=== PATIENT | male | born 1950 | race Caucasian/White ===

== ENCOUNTER → 2016-05-11 | Outpatient (CLI) | payer OTHER ==
[~2016-05-11] MED LIST: ALFU10TA30 PO; ASCO10003 PO; ASPI81TA28 PO; CIPR-255 PO; CLC100 PO; DTR5 PO; IBUP-103 PO; LEVO125T4 PO; OXYC7.5T62 PO; SIMV20TA2 PO; VITACAP26 PO
[2016-05-11 11:17] LABS: ESTIMATED AVERAGE GLUCOSE 111 mg/dl; HA1C FLAG Normal (Normal)
== END | disposition home or self-care (01) ==
LOC: C.LABBC 07:54
PROVIDERS: ATTEND Internal Medicine
DX: E78.5 Hyperlipidemia, unspecified (principal); R73.09 Other abnormal glucose

== ENCOUNTER 2016-05-31 10:33 | Inpatient (IN) | payer OTHER ==
[2016-05-14 11:19] VITALS: BMI 27.0
--- NOTE | 2016-05-14 11:57 | PAT Medication Instructions ---
Service Date May 14, 2016. Current Home Medication List Ascorbic Acid (Vitamin C), 1,000 MG PO QAM Aspirin (Aspirin Ec), 81 MG PO QAM Ibuprofen Tab (Advil), 400-600 MG PO prn Levothyroxine Sodium (Levothyroxine Sodium), 1 TAB PO QAM Simvastatin (Zocor), 20 MG PO QPM Medication Instructions For Your Scheduled Surgery - Check with surgeon for instructions: Aspirin (Aspirin Ec), 81 MG PO QAM Ibuprofen Tab (Advil), 400-600 MG PO prn - Hold the following medications the morning of surgery: Ascorbic Acid (Vitamin C), 1,000 MG PO QAM - Take the following medications the morning of surgery with a sip of water: Levothyroxine Sodium (Levothyroxine Sodium), 1 TAB PO QAM - Take the following medications as scheduled the night before surgery: Simvastatin (Zocor), 20 MG PO QPM If you have any questions please call us at [phone] (Sydnie Hodges PA-C) or [phone] or [phone]
[2016-05-14 12:21] LABS: BASO % 0.4 %; BASO ABS # 0.02 K/uL (0-0.2); COMPLETE YES; EOS % 5.5 %; HEMATOCRIT 44.8 % (42-52); LYMPH % 26.2 %; LYMPH ABS # 1.29 K/uL (1.2-3.4); MEAN CELL VOLUME 88.9 fL (80-100); MEAN CORPUSCULAR HEMOGLOBIN 31.5 pg (25-34); MEAN CORPUSCULAR HGB CONC 35.5 g/dl (32-36); MEAN PLATELET VOLUME 10.1 fL (7.4-10.4); MONO % 8.5 %; NEUT % 59.4 %; PLATELET COUNT 156 K/uL (130-400); RED BLOOD COUNT 5.04 M/uL (4.7-6.1); WHITE BLOOD COUNT 4.93 K/uL (4.8-10.8)
[2016-05-14 12:23] LABS: URINE APPEARANCE CLEAR (CLEAR); URINE BILIRUBIN NEG (NEG); URINE COLOR YELLOW; URINE NITRITE NEG (NEG); URINE PH 6.5 (4.5-7.5); URINE SPECIFIC GRAVITY 1.004 (1.000-1.030); UROBILINOGEN NEG (NEG)
[2016-05-14 12:25] LABS: MANUAL MICROSCOPIC REQUIRED? NO; REVIEW REQ? NO
[2016-05-14 12:58] LABS: BUN/CREATININE RATIO 16.1 (10-20); CALCIUM 8.8 mg/dl (8.5-10.1); CREATININE 1.2 mg/dl (0.60-1.40); POTASSIUM 4.3 mmol/L (3.5-5.1)
[~2016-05-31] VITALS: Ht 177.8 cm; Wt 82.0 kg
[2016-05-31] VITALS (7 sets, daily range): BP systolic 134–157; BP diastolic 61–85; PULSE 53–68; TEMP 36.4–36.9; O2SAT 91–99; Ht 177.8 cm; Wt 82.0 kg
[~2016-05-31 10:33] MED LIST changes: -ALFU10TA30 PO; +CEFAZOLIN 1000MG/55 ML D5W IV SCH; +CEFAZOLIN 2000 MG/60 ML D5W IV SCH; -CIPR-255 PO; -CLC100 PO; +DEXAMETHASONE SOD INJ 4 MG/ML VIAL ONE; -DTR5 PO; +FENTANYL CITRATE INJ 50 MCG/1 ML 2 ML VIAL ONE; +HEPARIN SOD 5000 UNIT/0.5 ML CARP SQ SCH; +LACTATED RINGER'S 1000ML 1,000 ML IV SCH; +LIDOCAINE HCL 2% 2 ML VIAL (20MG/ML) ONE; +METOCLOPRAMIDE HCL INJ 5 MG/ML 2 ML VIAL ONE; +MIDAZOLAM HCL 1 MG/ML 2ML VIAL ONE; +ONDANSETRON INJ 2 MG/ML 2 ML VIAL ONE; -OXYC7.5T62 PO; +PROPOFOL IV EMULSION 10 MG/ML 20 ML VIAL IV ONE; +RANITIDINE HCL 25 MG/ML INJ ONE; +ROCURONIUM BROMIDE 10 MG/ML 5 ML VIAL ONE; +SUCCINYLCHOLINE CHLORIDE 20 MG/ML 10 ML VIAL IV ONE; -VITACAP26 PO
[2016-05-31] MEDS ORDERED: ROCURONIUM BROMIDE 10 MG/ML 5 ML VIAL ONE ×2 (10:49→15:12)
--- NOTE | 2016-05-31 12:01 | History & Physical Bridge Note ---
H&P Re-Evaluation Bridge Note: I have examined the patient, reviewed the History & Physical and in the interval since the performance of the History & Physical I have noted the following changes of clinical significance: No changes noted
[2016-05-31] MEDS ORDERED: BUPIVACAINE 0.5 % 5 MG/1 ML MPF 30ML VIAL ONE (12:38)
[2016-05-31] MEDS ORDERED: LACTATED RINGER'S 1000ML 1,000 ML IV PRN (12:41)
[2016-05-31] MEDS ORDERED: MoRPHine SULFATE 2 MG/ML CARP ONE ×2 (12:45→12:46)
[2016-05-31] MEDS ORDERED: ONDANSETRON INJ 2 MG/ML 2 ML VIAL IV PRN ×2 (12:45→16:15)
[2016-05-31] MEDS ORDERED: METHYLENE BLUE 0.5% 10 ML VIAL ONE (14:48)
[2016-05-31] MEDS ORDERED: OXYCODONE/ACETAMINOPHEN 7.5-325 TAB PO PRN (16:15)
[2016-05-31] MEDS ORDERED: HYDROmorphone INJ 1 MG/ML SYR IV PRN (16:15)
[2016-05-31] MEDS ORDERED: KETOROLAC TROMETHAMINE 15 MG/ML VIAL IV PRN (16:15)
[2016-05-31] MEDS ORDERED: OXYBUTYNIN CHLORIDE 5 MG TAB PO PRN (16:15)
[2016-05-31] MEDS ORDERED: GLYCOPYRROLATE INJ 0.2 MG/ML VIAL ONE (16:16)
[2016-05-31] MEDS ORDERED: NEOSTIGMINE METHYLSULFATE 5 MG/5 ML SYR ONE (16:16)
[2016-05-31] MEDS: FENTANYL CITRATE INJ 50 MCG/1 ML 2 ML VIAL IV PRN ×4 (16:20→16:35)
--- NOTE | 2016-05-31 16:29 | [facility] Post Operative Brief Note ---
Immediate Operative Summary Operative Date May 31, 2016. Pre-Operative Diagnosis cT1c [place] 3+3 Prostate cancer Post-Operative Diagnosis Same as pre-operative Procedure(s) Performed Robotic assisted laparoscopic radical retropubic prostatectomy Surgeon Dr. Fransisco Noel MD Fishery Biologist Surgeon(s) Jamila Alaniz, RN, COFFEE FARMER Estimated Blood Loss 50 ML Findings Watertight anastomosis. Specimens A. Prostate and seminal vessicles B. Periprostatic fat Drains 18 fr renner, #10 THAO drain Anesthesia GAET + local Complication(s) None Disposition Recovery Room / PACU
[2016-05-31 16:33] LABS: HEMATOCRIT 45.6 % (42-52); MEAN CELL VOLUME 90.5 fL (80-100); MEAN CORPUSCULAR HEMOGLOBIN 32.7 pg (25-34); MEAN PLATELET VOLUME 10.3 fL (7.4-10.4); PLATELET COUNT 155 K/uL (130-400); RED BLOOD COUNT 5.04 M/uL (4.7-6.1); WHITE BLOOD COUNT 10.16 K/uL (4.8-10.8)
[2016-05-31] MEDS: HYDROmorphone INJ 1 MG/ML SYR IV PRN ×2 (16:40→16:45)
[2016-05-31 16:45] LABS: MEAN CORPUSCULAR HGB CONC 36.2 g/dl (32-36)
[2016-05-31 16:58] LABS: BUN/CREATININE RATIO 15.4 (10-20); CALCIUM 8.5 mg/dl (8.5-10.1); CREATININE 1.5 mg/dl (0.60-1.40); POTASSIUM 3.8 mmol/L (3.5-5.1)
--- NOTE | 2016-05-31 17:12 | OPERATIVE REPORT ---
DATE OF OPERATION: 05/31/2016 PREOPERATIVE DIAGNOSIS: [place] 3+3 adenocarcinoma of the prostate. POSTOPERATIVE DIAGNOSIS: Same. PROCEDURE: Robot-assisted laparoscopic radical retropubic prostatectomy. SURGEON: Dr. Fransisco Noel. RN MEDICARE: MEHUL Carreno. ANESTHESIA: General anesthesia with endotracheal intubation plus local at port sites. ESTIMATED BLOOD LOSS: 50 mL. IV FLUIDS: 1500 mL of crystalloid. SPECIMENS SENT TO PATHOLOGY: Periprostatic fat, prostate plus seminal vesicles. DRAINS LEFT IN PLACE: Include a #10 THAO drain in the left lower quadrant and an 18-Austrian silicone Maher catheter to gravity drainage with 10 mL of sterile water balloon. FINDINGS: Watertight anastomosis, median lobe, periprostatic inflammation at the level of the apex, excellent hemostasis. COMPLICATIONS: None. BRIEF HISTORY: Mr. Garsia is a pleasant 65-year-old male who I have seen as an outpatient for history of an elevated and rising PSA. He has undergone a prostate biopsy which demonstrated relatively large volumes of [place] 3+3 adenocarcinoma. Please see H\T\P for further details. After discussion of risks and benefits of various forms of management, the patient has decided upon a robot-assisted laparoscopic radical retropubic prostatectomy to manage his disease. Intravenous cephalosporins were provided for antibiotic coverage and heparin and SCDs used for DVT prophylaxis. Informed consent reviewed prior to the operating room today. PROCEDURE: The patient was properly identified and brought to the operative suite after identification of the chart, general anesthesia with endotracheal intubation was initiated. The patient was prepped and draped in standard fashion for this procedure. artist and repertoire manager-out procedure was followed. A 12 mm supraumbilical incision was made and abdomen was entered under direct visualization using a 0 degree lens and a visual obturator. Abdomen was insufflated to 15 mmHg and the patient was noted to be free of any injuries on access to the abdomen. Normal intra-abdominal anatomy was appreciated. Ports were placed for a 4th arm robotic template including 2 left-sided 7 mm robotic ports, 1 right-sided 7 mm port, a 5 and 12 mm therapist's assistant port. A relatively copious amount of intra-abdominal fat was noted and some of it was resected to allow for passage of the scope without cellulite. Bladder was dropped down to the level of the pubic bone and prostate was defatted. This fat was sent as periprostatic fat for pathologic analysis. Endopelvic fascia was sharply entered on both sides and dorsal venous complex which was noted to be rather thick was skeletonized. This was then controlled using a [id number] 0 Vicryl suture on a CT1 needle. The neurovascular bundles were defined on both sides, although seem to be relatively large volume of [place] 3+3. Negligible risk of extracapsular extension was appreciated. A 30 degree down lens was used to place the bladder neck on traction and divided the bladder neck down to the level of the Maher catheter. The Maher was pulled within the fourth arm and used for anterior traction on the prostate gland. The median lobe within the confines of the prostate was appreciated and the mucosa was incised over the median lobe. Bladder was dropped and median lobe was dissected free. No evidence of injury to the ureteral orifices, which were noted to be well removed from the area of dissection at the bladder neck was appreciated. Posterior bladder neck was divided and the bladder was dropped in the midline down to the level of the vasa and seminal vesicles in the midline posterior to the prostate. The vas deferens were circumscribed and divided and seminal vesicles were dissected free. Vessels were controlled using monopolar and bipolar cautery as necessary. Cold scissors were used to drop the rectum up to the level of the apex of the prostate. The prostatic pedicles were defined on both sides and controlled using cold Weck clips. At the level of the neurovascular bundles, a small rim of tissue was left over the prostate gland for a risk of extracapsular extension. Dissection was carried out to the level of the apex where continuing the recording due to a risk of extracapsular extension, a small rim of neurovascular tissue was left on the prostate gland on either side. The apex of the prostate was reached and attention was turned to the dorsal vein which was divided using hot scissors. Urethra was skeletonized and then divided. Rectourethralis fibers were divided with excellent hemostasis and prostate was removed from the pelvis where it was placed into the abdomen. It was placed within an EndoCatch bag for retrieval at the end of the case. Excellent hemostasis in prostatic bed was appreciated. Pelvis was filled with saline and rectum was insufflated under saline irrigation with no evidence of injury to the rectum. Urethrovesical anastomosis was completed using a double armed V-Loc suture in a circumferential running fashion. Maher was visualized entering the bladder prior to completion of the closure. This was tested with greater than 120 mL of sterile irrigant and noted to be watertight. Ten mL of sterile water were placed within the balloon which was placed to gravity drainage. A THAO drain was brought in via the fourth arm port which was placed within the confines of the pelvis while avoiding placing it directly over the anastomosis. Robotic instruments were removed. Camera was brought in via the therapist's assistant port and string to the EndoCatch bag was retrieved through the supraumbilical incision. Ports were removed and the supraumbilical incision was enlarged sufficiently to allow for easy passage of the specimen bag. Supraumbilical incision was closed using 0 Vicryl suture on a UR-5 and UR-6 needle after removal of excess carbon dioxide gas from the abdomen. 2-0 silk was used to secure the drain in place and 4-0 Monocryl and Dermabond was used to close the skin incisions at the laparoscopic port sites. The catheter was placed to gravity drainage. THAO drain was placed to bulb suction. Anesthesia was reversed. The patient was transferred to recovery room in stable condition. FOLLOWUP CARE: The patient will be admitted to the floor for standard postoperative management. I attest to the content of the Intraoperative Record and any orders documented therein. Any exceptio ns are noted below.
--- NOTE | 2016-05-31 17:35 | Anesthesiology Progress Note ---
Anesthesia Post Op Note Date & Time May 31, 2016 at 17:34 Vital Signs Pain Intensity: 7 Vital Signs Past 12 Hours Date Time Temp Pulse Resp B/P Pulse Ox O2 Delivery O2 Flow Rate FiO2 05/31/16 17:10 58 16 127/56 100 Nasal Cannula 2 05/31/16 17:00 36.4 44 12 138/52 100 Nasal Cannula 2 05/31/16 16:50 61 17 125/41 99 Nasal Cannula 2 05/31/16 16:40 58 16 157/63 100 Nasal Cannula 2 05/31/16 16:30 57 16 158/77 100 Mask 10 05/31/16 16:20 59 17 162/63 100 Mask 10 05/31/16 16:12 37.1 67 19 147/69 100 Mask 10 05/31/16 10:55 36.4 53 18 153/85 99 Room Air Notes Mental Status: alert / awake / arousable, participated in evaluation Pt Amnestic to Procedure: Yes Nausea / Vomiting: adequately controlled Pain: adequately controlled Airway Patency, RR, SpO2: stable & adequate BP & HR: stable & adequate Hydration State: stable & adequate Anesthetic Complications: no major complications apparent
[2016-05-31 19:19] LABS: INR 1.1 (0.9-1.1); PROTHROMBIN TIME (PATIENT) 11.4 SECONDS (9.0-12.0)
[2016-05-31] MEDS: LACTATED RINGER'S 1000ML 1,000 ML IV SCH (19:26)
[2016-05-31] MEDS: CEFAZOLIN IV 2,000 MG in DEXTROSE 5% 50ML 50 ML IV SCH (19:26)
[2016-05-31] MEDS: ACETAMINOPHEN 500 MG TAB PO SCH (19:27)
[2016-05-31] MEDS ORDERED: SIMVASTATIN 20 MG TAB PO SCH (21:00)
[2016-05-31] MEDS: DOCUSATE SODIUM 100 MG CAP PO SCH (22:01)
[2016-05-31] MEDS: HEPARIN SOD 5000 UNIT/0.5 ML CARP SQ SCH (22:07)
[2016-06-01] MEDS: ACETAMINOPHEN 500 MG TAB PO SCH ×2 (01:45→08:40)
[2016-06-01 03:05] VITALS: BP 138/67; PULSE 52; TEMP 36.8; O2SAT 92
[2016-06-01] MEDS: CEFAZOLIN IV 2,000 MG in DEXTROSE 5% 50ML 50 ML IV SCH ×2 (03:26→12:20)
[2016-06-01] MEDS: LACTATED RINGER'S 1000ML 1,000 ML IV SCH ×2 (03:27→12:42)
[2016-06-01] MEDS ORDERED: LEVOTHYROXINE 125 MCG TAB PO SCH (06:00)
[2016-06-01 07:20] LABS: COMPLETE YES; HEMATOCRIT 41.3 % (42-52); IG% 0.2 %; LYMPH % 7.3 %; LYMPH ABS # 0.78 K/uL (1.2-3.4); MEAN CELL VOLUME 87.5 fL (80-100); MEAN CORPUSCULAR HEMOGLOBIN 30.7 pg (25-34); MEAN CORPUSCULAR HGB CONC 35.1 g/dl (32-36); MEAN PLATELET VOLUME 10.5 fL (7.4-10.4); MONO % 14.5 %; PLATELET COUNT 153 K/uL (130-400); RED BLOOD COUNT 4.72 M/uL (4.7-6.1); WHITE BLOOD COUNT 10.63 K/uL (4.8-10.8)
[2016-06-01 07:49] VITALS: BP 118/62; PULSE 55; TEMP 36.7; O2SAT 94
[2016-06-01 07:54] LABS: BUN/CREATININE RATIO 13.6 (10-20); CALCIUM 8.3 mg/dl (8.5-10.1); CREATININE 1.3 mg/dl (0.60-1.40); POTASSIUM 4.1 mmol/L (3.5-5.1)
[2016-06-01] MEDS ORDERED: PNEUMOCOCCAL POLYSACCHARIDES 25 MCG/0.5 ML VIAL/SYR IM. ONE (08:00)
[2016-06-01] MEDS ORDERED: PNEUMOCOCCAL ADMINISTRATION CHARGE ONE (08:00)
[2016-06-01] MEDS: DOCUSATE SODIUM 100 MG CAP PO SCH (08:40)
--- NOTE | 2016-06-01 08:46 | Progress Note ---
Subjective Date of Service: Jun 01, 2016. Subjective Pt evaluation today including: conversation w/ patient, conversation w/ family , physical exam, chart review Voiding: renner catheter in place 65 year old POD#1 RALP Doing well. Minimal pain Tolerating clears. Ambulating in halls and passing flatus. Renner intact draining clear yellow urine. Abd is actually soft- incisions look great. THAO drain intact with small amount of serosang drainage. IVF infusing. AFVSS, Labs unremarkable. Review of Systems Constitutional: No chills, No fever Eyes: No worsening of vision ENT: No hearing loss Respiratory: No cough, No shortness of breath Cardiac: No chest pain Abdomen: + see HPI, No nausea, No vomiting Male : + see HPI Neurologic: No memory loss Psychiatric: No depression symptoms Heme: No abnormal bleeding/bruising Endo: No fatigue Skin: No rash Objective Vital Signs Date Time Temp Pulse Resp B/P Pulse Ox O2 Delivery O2 Flow Rate FiO2 06/01/16 07:49 36.7 55 15 118/62 94 Room Air 06/01/16 03:05 36.8 52 17 138/67 92 Room Air 05/31/16 23:47 36.9 57 18 134/61 91 Room Air 05/31/16 23:35 Room Air 05/31/16 20:22 36.6 63 16 156/76 97 Room Air 05/31/16 19:20 36.6 61 16 154/74 95 Nasal Cannula 2.0 05/31/16 18:25 36.8 68 16 139/79 96 Nasal Cannula 1.5 05/31/16 17:50 36.6 60 16 157/74 96 Nasal Cannula 2.0 05/31/16 17:20 96 Nasal Cannula 2.0 05/31/16 17:20 96 Nasal Cannula 2.0 05/31/16 17:10 58 16 127/56 100 Nasal Cannula 2 05/31/16 17:00 36.4 44 12 138/52 100 Nasal Cannula 2 05/31/16 16:50 61 17 125/41 99 Nasal Cannula 2 05/31/16 16:40 58 16 157/63 100 Nasal Cannula 2 05/31/16 16:30 57 16 158/77 100 Mask 10 05/31/16 16:20 59 17 162/63 100 Mask 10 05/31/16 16:12 37.1 67 19 147/69 100 Mask 10 05/31/16 10:55 36.4 53 18 153/85 99 Room Air Physical Exam General Appearance: WD/WN, no apparent distress Eyes: normal inspection ENT: hearing grossly normal Neck: no JVD Respiratory/Chest: no respiratory distress, no accessory muscle use Abdomen: soft Extremities: normal range of motion, non-tender, normal inspection, no pedal edema, no calf tenderness Neurologic/Psychiatric: alert, normal mood/affect, oriented x 3 Skin: normal color, warm/dry, no rash Laboratory Results Last 24 Hours Test 05/31/16 16:27 05/31/16 18:46 06/01/16 06:52 White Blood Count 10.16 K/uL 10.63 K/uL Red Blood Count 5.04 M/uL 4.72 M/uL Hemoglobin 16.5 g/dL 14.5 g/dL Hematocrit 45.6 % 41.3 % Mean Corpuscular Volume 90.5 fL 87.5 fL Mean Corpuscular Hemoglobin 32.7 pg 30.7 pg Mean Corpuscular Hemoglobin Concent 36.2 g/dl 35.1 g/dl RDW Standard Deviation 41.6 fL 40.0 fL RDW Coefficient of Variation 12.6 % 12.5 % Platelet Count 155 K/uL 153 K/uL Mean Platelet Volume 10.3 fL 10.5 fL Sodium Level 142 mmol/L 140 mmol/L Potassium Level 3.8 mmol/L 4.1 mmol/L Chloride Level 105 mmol/L 106 mmol/L Carbon Dioxide Level 25 mmol/L 25 mmol/L Anion Gap 12.0 mmol/L 9.0 mmol/L Blood Urea Nitrogen 23 mg/dl 18 mg/dl Creatinine 1.50 mg/dl 1.30 mg/dl Est Creatinine Clear Calc Drug Dose 50.7 ml/min 58.5 ml/min Estimated GFR () 55.8 66.4 Estimated GFR (Non- 48.2 57.3 BUN/Creatinine Ratio 15.4 13.6 Random Glucose 138 mg/dl 147 mg/dl Calcium Level 8.5 mg/dl 8.3 mg/dl Prothrombin Time 11.4 SECONDS Prothromb Time International Ratio 1.1 Activated Partial Thromboplast Time 25.4 SECONDS Partial Thromboplastin Ratio 1.0 Neutrophils (%) (Auto) 78.0 % Lymphocytes (%) (Auto) 7.3 % Monocytes (%) (Auto) 14.5 % Eosinophils (%) (Auto) 0.0 % Basophils (%) (Auto) 0.0 % Neutrophils # (Auto) 8.29 K/uL Lymphocytes # (Auto) 0.78 K/uL Monocytes # (Auto) 1.54 K/uL Eosinophils # (Auto) 0.00 K/uL Basophils # (Auto) 0.00 K/uL Immature Granulocyte % (Auto) 0.2 % Immature Granulocyte # (Auto) 0.02 K/uL Assessment and Plan s/p RALP Pt doing well. Increase diet as tolerated. Ok to discharge home after lunch if tolerating diet and pain. May d/c THAO drain and IVF after lunch if tolerating diet. Encourage ambulation. Renner cath care teaching. rx on chart for Cipro, oxybutynin for bladder spasms, colace and percocet.
[2016-06-01] MEDS ORDERED: CIPR-255 PO (08:49)
[2016-06-01] MEDS ORDERED: CLC100 PO (08:49)
[2016-06-01] MEDS ORDERED: OXYC7.5T62 PO (08:49)
[2016-06-01] MEDS ORDERED: DTR5 PO (08:49)
--- NOTE | 2016-06-01 08:51 | Discharge Instructions ---
Discharge Instructions Admission Reason for Admission: Prostate Cancer Discharge Discharge Diagnosis / Problem: Prostate Cancer Discharge Goals Goal(s): Improve function, Improve disease control, Prevent Disease Progression Activity Recommendations Activity Limitations: per Instructions/Follow-up section . Instructions / Follow-Up Instructions / Follow-Up 1. Do not lift >15lbs x 6 weeks. 2. No heavy exercise x 6 weeks. You may engage in light activity such as walking and stairs as tolerated. 3. No sexual intercourse until cleared by Dr. Noel or Dr. Ward. 4. Do not drive x [address] while taking narcotics. 5. Finish all of the antibiotic you have been prescribed. 6. Immediately call our office at [phone] if your catheter is removed for any reason. 7. Follow-up as scheduled. Please call our office at [phone] if you need to reschedule for any reason. . Current Hospital Diet Hospital Diet(s): Regular Diet Discharge Diet Recommended Diet: Regular Diet Procedures Procedures Performed: Robotic assisted laparoscopic radical retropubic prostatectomy Pending Studies Studies pending at discharge: no Laboratory Results Hemoglobin A1c Test 05/11/16 08:01 Range/Units Estimated Average Glucose 111 mg/dl Hemoglobin A1c 5.5 4.5-5.6 % Lipid Panel Test 05/11/16 08:01 Range/Units Triglycerides Level 99 0-150 mg/dl Cholesterol Level 139 0-200 mg/dl HDL Cholesterol 46 mg/dl Cholesterol/HDL Ratio 3.0 LDL Cholesterol, Calculated 73 mg/dl Medical Emergencies . Who to Call and When: Medical Emergencies: If at any time you feel your situation is an emergency, please call 911 immediately. . Non-Emergent Contact Non-Emergency issues call your: Primary Care Provider, Urologist Call Non-Emergent contact if: temperature is above 101.5 . . "Provider Documentation" section prepared by Mary Sweeney. VTE Core Measure Inpt VTE Proph given/why not?: Unfractionated heparin SQ, SCD's
[2016-06-01] MEDS ORDERED: ASPIRIN 81 MG ECTAB PO SCH (09:00)
[2016-06-01 09:53] VITALS: O2SAT 94
[2016-06-01] MEDS: HEPARIN SOD 5000 UNIT/0.5 ML CARP SQ SCH (12:15)
--- NOTE | 2016-06-01 13:45 | Anesthesiology Progress Note ---
Anesthesia Post Op Note Date & Time Jun 01, 2016 at 13:44 Vital Signs Pain Intensity: 0.0 Vital Signs Past 12 Hours Date Time Temp Pulse Resp B/P Pulse Ox O2 Delivery O2 Flow Rate FiO2 06/01/16 09:53 94 Room Air 06/01/16 07:49 36.7 55 15 118/62 94 Room Air 06/01/16 07:20 Room Air 06/01/16 03:05 36.8 52 17 138/67 92 Room Air Notes Mental Status: alert / awake / arousable, participated in evaluation Pt Amnestic to Procedure: Yes Nausea / Vomiting: adequately controlled Pain: adequately controlled Airway Patency, RR, SpO2: stable & adequate BP & HR: stable & adequate Hydration State: stable & adequate Anesthetic Complications: no major complications apparent
[2016-06-01 13:47] VITALS: BP 118/62; PULSE 55; TEMP 36.7; O2SAT 94
--- NOTE | 2016-06-19 15:48 | DISCHARGE SUMMARY ---
ADMITTING DIAGNOSIS: Prostate cancer. DISCHARGE DIAGNOSIS: Same. PROCEDURES OVER THE COURSE OF ADMISSION: Include a robotic prostatectomy on 05/31/2016. ADMITTING ATTENDING: Dr. Fransisco Noel. COMPLICATIONS: None. PROCEDURE OVER THE COURSE OF HOSPITALIZATION: Include a robotic prostatectomy on 05/31/2016 as planned. BRIEF HISTORY: Mr. Garsia is a pleasant 65-year-old male who has been found to have prostate cancer as an outpatient after prostate biopsy. Please see H\T\P for further details. He has decided upon radical prostatectomy to manage his disease with robot assistance and is being admitted for this purpose. HOSPITAL COURSE: The patient was admitted after uncomplicated robotic prostatectomy as planned on 05/31/2016. Please see operative report for further details. The patient's diet and activity were rapidly advanced over the course of this hospitalization. By postoperative day #1, he was ambulating in the hallways, tolerating a regular diet and overall considered stable for discharge home. Please see progress notes for further details. DISCHARGE INSTRUCTIONS: Please see discharge instructions and medication sheet for details. Outpatient trial of void and postoperative appointment is confirmed. The patient is instructed to contact our service should he note any fevers, chills, nausea, vomiting or other significant difficulties in the postoperative period.
== END 2016-06-01 14:59 | disposition home or self-care (01) | DRG 707 ==
LOC: ENRESERVTM → ENRESERVDT → C.ACU 10:33 → C.MSW 16:09
PROVIDERS: ADMIT Urology; ATTEND Urology
PROC: 0VT34ZZ Resection of Bilateral Seminal Vesicles, Percutaneous Endoscopic Approach (ICD-10-PCS; principal; 2016-05-31 12:30)
PROC: 0VT04ZZ Resection of Prostate, Percutaneous Endoscopic Approach (ICD-10-PCS; principal; 2016-05-31 12:30)
PROC: 8E0W4CZ Robotic Assisted Procedure of Trunk Region, Percutaneous Endoscopic Approach (ICD-10-PCS; principal; 2016-05-31 12:30)
DX: C61 Malignant neoplasm of prostate (principal); N13.30 Unspecified hydronephrosis; N40.1 Benign prostatic hyperplasia with lower urinary tract symptoms; R35.1 Nocturia; E78.5 Hyperlipidemia, unspecified; E89.0 Postprocedural hypothyroidism; N20.0 Calculus of kidney; R73.03 Prediabetes; D86.9 Sarcoidosis, unspecified

== ENCOUNTER → 2016-06-20 | Outpatient (CLI) | payer OTHER ==
[~2016-06-20] MED LIST changes: -CEFAZOLIN 1000MG/55 ML D5W IV SCH; -CEFAZOLIN 2000 MG/60 ML D5W IV SCH; +CIPR-255 PO; +CLC100 PO; -DEXAMETHASONE SOD INJ 4 MG/ML VIAL ONE; +DTR5 PO; -FENTANYL CITRATE INJ 50 MCG/1 ML 2 ML VIAL ONE; -HEPARIN SOD 5000 UNIT/0.5 ML CARP SQ SCH; -LACTATED RINGER'S 1000ML 1,000 ML IV SCH; -LIDOCAINE HCL 2% 2 ML VIAL (20MG/ML) ONE; -METOCLOPRAMIDE HCL INJ 5 MG/ML 2 ML VIAL ONE; -MIDAZOLAM HCL 1 MG/ML 2ML VIAL ONE; -ONDANSETRON INJ 2 MG/ML 2 ML VIAL ONE; +OXYC7.5T62 PO; -PROPOFOL IV EMULSION 10 MG/ML 20 ML VIAL IV ONE; -RANITIDINE HCL 25 MG/ML INJ ONE; -ROCURONIUM BROMIDE 10 MG/ML 5 ML VIAL ONE; -SUCCINYLCHOLINE CHLORIDE 20 MG/ML 10 ML VIAL IV ONE
== END | disposition home or self-care (01) ==
LOC: C.LABSPEC 17:14
PROVIDERS: ATTEND Urology
DX: N20.0 Calculus of kidney (principal)

== ENCOUNTER → 2016-08-03 | Outpatient (CLI) | payer OTHER ==
[~2016-08-03] MED LIST changes: -LEVO125T4 PO; +LEVO125T5 PO; +OXYC-57 PO; +SILD1TAB11 PO
[2016-08-03 11:19] LABS: BLOOD UREA NITROGEN 27 mg/dl (7-18); BUN/CREATININE RATIO 22.4 (10-20)
== END | disposition home or self-care (01) ==
LOC: C.LABBC 07:35
PROVIDERS: ATTEND Urology
DX: N20.0 Calculus of kidney (principal)

== ENCOUNTER → 2016-08-21 | Outpatient (CLI) | payer OTHER | END | disposition home or self-care (01) | LOC: C.PATHSPEC 16:34 | PROVIDERS: ATTEND Dermatology | DX: L72.9 Follicular cyst of the skin and subcutaneous tissue, unspecified (principal) ==

== ENCOUNTER → 2016-09-13 | Outpatient (CLI) | payer OTHER ==
[2016-09-13 10:41] LABS: BLOOD UREA NITROGEN 24 mg/dl (7-18); BUN/CREATININE RATIO 18.5 (10-20); CALCIUM 8.9 mg/dl (8.5-10.1); CARBON DIOXIDE 26 mmol/L (21-32); CHLORIDE 108 mmol/L (98-107); GLUCOSE 99 mg/dl (70-99); POTASSIUM 3.9 mmol/L (3.5-5.1); SODIUM 143 mmol/L (136-145)
[2016-09-13 10:44] LABS: CHOLESTEROL 163 mg/dl (0-200); CHOLESTEROL/HDL RATIO 3.7; HDL CHOLESTEROL 44 mg/dl; LDL CHOLESTEROL CALCULATED 96 mg/dl; TRIGLYCERIDES 115 mg/dl (0-150); VERY LOW DENSITY LIPOPROT CALC 23 mg/dl
== END | disposition home or self-care (01) ==
LOC: C.LABBC 07:50
PROVIDERS: ATTEND Internal Medicine
DX: N28.9 Disorder of kidney and ureter, unspecified (principal); E78.5 Hyperlipidemia, unspecified

== ENCOUNTER → 2016-10-22 | Outpatient (CLI) | payer OTHER ==
[~2016-10-22] MED LIST changes: +LEVO125T4 PO; -LEVO125T5 PO; -OXYC-57 PO; -SILD1TAB11 PO
--- NOTE | 2016-10-22 10:50 | DIAGNOSTIC IMAGING REPORT ---
ABDOMEN FOR HERNIA CLINICAL HISTORY: HERNIA nodule TECHNIQUE: Ultrasound COMPARISON STUDY: None FINDINGS: Fat-containing right inguinal hernia. This is reducible. No evidence for bowel containment. IMPRESSION: Fat-containing reducible right inguinal hernia. No evidence of bowel containment. The above report was generated using voice recognition software. It may contain grammatical, syntax or spelling errors. Electronically signed by: Alexis Soto M.D. 10/22/2016 10:49 AM Dictated Date/Time: 10/22/2016 10:48 AM
== END | disposition home or self-care (01) ==
LOC: C.ULTRBC 10:19
PROVIDERS: ATTEND Physician Assistant
DX: K40.90 Unilateral inguinal hernia, without obstruction or gangrene, not specified as recurrent (principal)

== ENCOUNTER → 2016-10-22 | Outpatient (CLI) | payer OTHER ==
--- NOTE | 2016-10-22 12:11 | DIAGNOSTIC IMAGING REPORT ---
KUB HISTORY: 65 years-old Male NEPHROLITHIASIS COMPARISON: KV radiograph 11/14/2015 TECHNIQUE: KUB radiograph FINDINGS: There is moderate volume of formed colonic stool which obscure the renal shadows. Calculus of the inferior pole left kidney is redemonstrated measuring up to approximately 4 mm. No definite renal calculi are seen. No calculi are noted along the course of either expected ureter. Bowel gas pattern is nonobstructive. There is no fracture. IMPRESSION: 1. Left-sided renal calculi again noted. 2. Limited visualization of the renal shadows secondary to moderate volume of formed colonic stool. The above report was generated using voice recognition software. It may contain grammatical, syntax or spelling errors. Electronically signed by: Patricio Bernal M.D. 10/22/2016 12:10 PM Dictated Date/Time: 10/22/2016 12:08 PM
[2016-10-22 14:03] LABS: BLOOD UREA NITROGEN 24 mg/dl (7-18); BUN/CREATININE RATIO 18.4 (10-20)
[2016-10-22 14:08] LABS: PROSTATE SPECIFIC ANTIGEN < 0.010 ng/ml (0.000-4.000)
== END | disposition home or self-care (01) ==
LOC: C.RADBC 10:55
PROVIDERS: ATTEND Urology
DX: N20.0 Calculus of kidney (principal)

== ENCOUNTER → 2016-10-26 | Outpatient (CLI) | payer OTHER ==
[2016-10-26 13:51] LABS: THYROID STIMULATING HORMONE 0.32 uIu/ml (0.300-4.500)
== END | disposition home or self-care (01) ==
LOC: C.LABBC 11:35
PROVIDERS: ATTEND Internal Medicine Endocrinology, Diabetes & Metabolism
DX: E89.0 Postprocedural hypothyroidism (principal)

== ENCOUNTER → 2017-02-12 | Outpatient (CLI) | payer OTHER ==
[~2017-02-12] MED LIST changes: -CIPR-255 PO; -DTR5 PO; -LEVO125T4 PO; +LEVO125T5 PO; +OXYC-57 PO; -OXYC7.5T62 PO; +SILD1TAB11 PO
== END | disposition home or self-care (01) ==
LOC: C.LABSPEC 16:57
PROVIDERS: ATTEND Physician Assistant
DX: L53.9 Erythematous condition, unspecified (principal)

== ENCOUNTER → 2017-03-04 | Outpatient (CLI) | payer OTHER ==
[2017-03-04 14:33] LABS: BLOOD UREA NITROGEN 26 mg/dl (7-18); BUN/CREATININE RATIO 20.6 (10-20); CREATININE 1.25 mg/dl (0.60-1.40)
[2017-03-04 14:38] LABS: PROSTATE SPECIFIC ANTIGEN < 0.010 ng/ml (0.000-4.000)
== END | disposition home or self-care (01) ==
LOC: C.LABBC 12:06
PROVIDERS: ATTEND Urology
DX: N20.0 Calculus of kidney (principal)

== ENCOUNTER → 2017-04-04 | Outpatient (CLI) | payer OTHER ==
[~2017-04-04] MED LIST changes: +DOCU100C31 PO
[2017-04-04 17:29] LABS: BASO % 0.6 %; BASO ABS # 0.03 K/uL (0-0.2); EOS % 9.2 %; EOS ABS # 0.48 K/uL (0-0.5); HEMATOCRIT 45.3 % (42-52); HEMOGLOBIN 15.9 g/dL (14.0-18.0); IG# 0.01 K/uL (0.00-0.02); LYMPH % 21.9 %; LYMPH ABS # 1.14 K/uL (1.2-3.4); MEAN CELL VOLUME 90.2 fL (80-100); MEAN CORPUSCULAR HEMOGLOBIN 31.7 pg (25-34); MEAN CORPUSCULAR HGB CONC 35.1 g/dl (32-36); MEAN PLATELET VOLUME 11.3 fL (7.4-10.4); MONO % 11.2 %; MONO ABS # 0.58 K/uL (0.11-0.59); NEUT % 56.9 %; NEUT ABS # 2.96 K/uL (1.4-6.5); PLATELET COUNT 168 K/uL (130-400); RED CELL DISTRIBUTION WIDTH CV 13.1 % (11.5-14.5); RED CELL DISTRIBUTION WIDTH SD 42.7 fL (36.4-46.3)
[2017-04-04 19:11] LABS: BLOOD UREA NITROGEN 20 mg/dl (7-18); CARBON DIOXIDE 29 mmol/L (21-32); CREATININE 1.13 mg/dl (0.60-1.40); GLUCOSE 111 mg/dl (70-99); POTASSIUM 3.9 mmol/L (3.5-5.1); SODIUM 140 mmol/L (136-145)
== END | disposition home or self-care (01) ==
LOC: C.LABBC 14:06
PROVIDERS: ATTEND Surgery
DX: Z01.812 Encounter for preprocedural laboratory examination (principal); K43.2 Incisional hernia without obstruction or gangrene

== ENCOUNTER → 2017-04-09 | Day surgery (SDC) | payer OTHER ==
[2017-04-04 15:10] VITALS: BMI 26.0
[2017-04-09] VITALS (7 sets, daily range): BP systolic 118–151; BP diastolic 62–73; PULSE 52–66; TEMP 36.4–36.9; O2SAT 92–96; Ht 177.8 cm; Wt 81.8 kg
[~2017-04-09] VITALS: Ht 177.8 cm; Wt 81.8 kg
[~2017-04-09] MED LIST changes: +ATROPINE SULFATE 0.1 MG/ML 5ML SYR IV PRN; +BACITRACIN 50000 UNIT VIAL ONE; +BUPIVACAINE 0.5 % 5 MG/1 ML MPF 30ML VIAL ONE; +CEFAZOLIN SOD 1 GM VIAL ONE; -CLC100 PO; +DEXAMETHASONE SOD INJ 4 MG/ML VIAL ONE; +EpHEDrine SULFATE INJ 50 MG/ML AMP IV PRN; +FENTANYL CITRATE INJ 50 MCG/1 ML 2 ML VIAL ONE; +GLYCOPYRROLATE INJ 0.2 MG/ML VIAL ONE; +LACTATED RINGER'S 1000ML 1,000 ML IV SCH; +LIDOCAINE HCL 2% 2 ML VIAL (20MG/ML) ONE; +MIDAZOLAM HCL 1 MG/ML 2ML VIAL ONE; +MoRPHine SULFATE 2 MG/ML CARP IV PRN; +NEOSTIGMINE METHYLSULFATE 5 MG/5 ML SYR ONE; +ONDANSETRON INJ 2 MG/ML 2 ML VIAL IV PRN; +ONDANSETRON INJ 2 MG/ML 2 ML VIAL ONE; +OXYCODONE/ACETAMINOPHEN 5-325 TAB ONE; +OXYCODONE/ACETAMINOPHEN 5-325 TAB PO PRN; +PROPOFOL IV EMULSION 10 MG/ML 20 ML VIAL IV ONE; +ROCURONIUM BROMIDE 10 MG/ML 5 ML VIAL IV ONE
--- NOTE | 2017-04-09 06:32 | History & Physical Bridge Note ---
H&P Re-Evaluation Bridge Note: I have examined the patient, reviewed the History & Physical and in the interval since the performance of the History & Physical I have noted the following changes of clinical significance: No changes noted pt marked at bedside all questions answered
--- NOTE | 2017-04-09 08:28 | [facility] Post Operative Brief Note ---
Immediate Operative Summary Operative Date Apr 09, 2017. Pre-Operative Diagnosis Supraumbilical Incisional Hernia Post-Operative Diagnosis Supraumbilical Incisional Hernia multifenestrated Procedure(s) Performed Laparoscopic multifenestrated incarcerated incisional hernia repair with [address] Mateus Phillips Back Hanger Surgeon(s) Avinash Leyva PA-C Estimated Blood Loss 10 mL Findings multiple fenestrated incarcerated incisional hernia Specimens Permanent specimens A: Incarcerated tissue
--- NOTE | 2017-04-09 08:43 | Discharge Instructions ---
Discharge Instructions Date of Service Apr 09, 2017. Visit Reason for Visit: Supraumbilical Incisional Hernia Discharge Discharge Diagnosis / Problem: laparoscopic repair of hernia Discharge Goals Goal(s): Decrease discomfort Activity Recommendations Activity Limitations: as noted below Lifting Limitations: no more than 10 pounds Shower/Bathe: tomorrow Driving or Machine Use: resume 3 days after discharge (if not taking Percocet) Anesthesia . Post Anesthesia Instructions: If you have had General Anesthesia or IV Sedation: * Do not drive today. * Resume driving when surgeon permits. * Do not make important decisions or sign legal documents today. * Call surgeon for: 1. Temperature elevations greater than 101 degrees F. 2. Uncontrollable pain. 3. Excessive bleeding. 4. Persistent nausea and vomiting. 5. Medication intolerance (nausea, vomiting or rash). * For nausea and vomiting use only clear liquids such as: tea, soda, bouillon until nausea subsides, then gradually increase diet as tolerated. * If you have any concerns or questions, call your surgeon's office. If physician is unavailable and it is an emergency, call 911 or go to the nearest emergency room. . Instructions / Follow-Up Instructions / Follow-Up Dr. Phillips in 1 week, call [phone] if you do not already have an appt or have any questions Diet Recommendations Recommended Home Diet: no limitations Procedures Procedures Performed: Laparoscopic multifenestrated incarcerated incisional hernia repair with 10 centimeter Surgimesh Pending Studies Studies pending at discharge: no Medical Emergencies . Who to Call and When: Medical Emergencies: If at any time you feel your situation is an emergency, please call 911 immediately. . Non-Emergent Contact Non-Emergency issues call your: Surgeon Call Non-Emergent contact if: you have a fever, temperature is above 101.5, your pain is not controlled, you have any medication questions . . "Provider Documentation" section prepared by Avinash Leyva. . [place] Drug Monitoring Program Search Results: no issues identified
[2017-04-09] MEDS: FENTANYL CITRATE INJ 50 MCG/1 ML 2 ML VIAL IV PRN ×4 (08:46→09:03)
[2017-04-09] MEDS: HYDROmorphone INJ 0.5 MG/0.5 ML SYR IV PRN ×2 (09:08→09:13)
--- NOTE | 2017-04-09 09:23 | OPERATIVE REPORT ---
DATE OF OPERATION: 04/09/2017 SURGEON: Mateus Phillips MD. HOSPICE AIDE: Avinash Leyva PA-C. PREOPERATIVE DIAGNOSIS: Incisional hernia supraumbilically. 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 PROCEDURE: Laparoscopic repair of multi-fenestrated incisional hernia with a 10 cm Surgimesh. SUMMARY: The patient was brought into the operating room theater. The abdomen was prepped with Betadine scrubbing solution and properly draped. We made a small incision infraumbilically, cut down under direct visualization intraabdominally to enter the peritoneal cavity. We wanted to stay away from the midline incision supraumbilical area where the patient has had a previous da Shannon prostatectomy and also laparoscopic repair, right inguinal hernia. The midline defect appeared to be about 2 inches above the umbilical tissue which we could palpate. At this point, we placed a 5 mm trocar under direct visualization. CO2 insufflated. We controlled the pneumoperitoneum with Vaseline gauze and some towel clip. At this point, under direct visualization, we placed a 5 mm left flank port and 5 mm right flank port to visualize the defect. What we could see was the multiply fenestrated defect extending in the midline, incorporating the falciform ligament in the area. We at this point placed another 5 mm left lower quadrant port and we used a camera in that site too. I used electrocautery and scissor to completely dissect out and reduce the multiply fenestrated incarcerated tissue out of this area. What we identified at the end once we had all dissected out to be multiple fenestration defect subcutaneously. We then outlined the area and appeared to be about 5 cm in size and diameter. We then brought in a sheet of 10 cm Surgimesh and we were able then to place it through the umbilical opening, controlled that with a towel clip and then elevated in the central portion with the nylon tacking sutures right at the middle of the defect and then tacked it circumferentially completely overlapping the initial hernia at its border about 2 cm or so. Once we had completed this, we then placed 4 polar sutures of 2-0 nylon coming through stab wounds attached into the mesh and the musculature. The repair appeared to be solid. There was no laxity to the mesh. Once we had checked this, the hemostasis was satisfactory. There was a piece of preperitoneal fat that was stuck in the umbilical area. We took it out through the umbilical port. The wounds were closed with fascial stitch 0 Vicryl suture for the initial trocar site. The other ones were closed with Monocryl. Steri-Strips applied. The procedure was tolerated well by the patient. Estimated blood loss approximately 10 mL. The patient was taken to recovery room in good condition. I attest to the content of the Intraoperative Record and any orders documented therein. Any exception s are noted below.
--- NOTE | 2017-04-09 10:11 | Anesthesiology Progress Note ---
Anesthesia Post Op Note Date & Time Apr 09, 2017 at 10:11 Vital Signs Pain Intensity: 6.0 Vital Signs Past 12 Hours Date Time Temp Pulse Resp B/P (MAP) Pulse Ox O2 Delivery O2 Flow Rate FiO2 04/09/17 09:40 36.4 52 18 148/66 96 Room Air 04/09/17 09:25 36.6 44 15 122/58 96 Room Air 04/09/17 09:15 45 12 132/64 95 Room Air 04/09/17 09:05 41 11 144/63 100 Room Air 04/09/17 08:55 43 14 146/61 100 Oxymask 10 04/09/17 08:45 58 17 152/82 100 Oxymask 10 04/09/17 08:39 36.3 64 15 154/86 100 Oxymask 10 04/09/17 05:50 36.6 52 16 151/70 (97) 96 Room Air Notes Mental Status: alert / awake / arousable, participated in evaluation Pt Amnestic to Procedure: Yes Nausea / Vomiting: adequately controlled Pain: adequately controlled Airway Patency, RR, SpO2: stable & adequate BP & HR: stable & adequate Hydration State: stable & adequate Anesthetic Complications: no major complications apparent
== END | disposition home or self-care (01) ==
LOC: C.ACU 05:27
PROVIDERS: ATTEND Surgery
DX: K43.2 Incisional hernia without obstruction or gangrene (principal); E11.9 Type 2 diabetes mellitus without complications; Z90.79 Acquired absence of other genital organ(s); E78.5 Hyperlipidemia, unspecified; E89.0 Postprocedural hypothyroidism; Z85.850 Personal history of malignant neoplasm of thyroid; D86.9 Sarcoidosis, unspecified; I87.8 Other specified disorders of veins; Z79.82 Long term (current) use of aspirin; Z82.49 Family history of ischemic heart disease and other diseases of the circulatory system; Z80.3 Family history of malignant neoplasm of breast; Z82.61 Family history of arthritis

== ENCOUNTER → 2017-08-02 | Outpatient (CLI) | payer OTHER ==
[~2017-08-02] MED LIST changes: -ATROPINE SULFATE 0.1 MG/ML 5ML SYR IV PRN; -BACITRACIN 50000 UNIT VIAL ONE; -BUPIVACAINE 0.5 % 5 MG/1 ML MPF 30ML VIAL ONE; -CEFAZOLIN SOD 1 GM VIAL ONE; -DEXAMETHASONE SOD INJ 4 MG/ML VIAL ONE; -EpHEDrine SULFATE INJ 50 MG/ML AMP IV PRN; -FENTANYL CITRATE INJ 50 MCG/1 ML 2 ML VIAL ONE; -GLYCOPYRROLATE INJ 0.2 MG/ML VIAL ONE; -LACTATED RINGER'S 1000ML 1,000 ML IV SCH; -LIDOCAINE HCL 2% 2 ML VIAL (20MG/ML) ONE; -MIDAZOLAM HCL 1 MG/ML 2ML VIAL ONE; -MoRPHine SULFATE 2 MG/ML CARP IV PRN; -NEOSTIGMINE METHYLSULFATE 5 MG/5 ML SYR ONE; -ONDANSETRON INJ 2 MG/ML 2 ML VIAL IV PRN; -ONDANSETRON INJ 2 MG/ML 2 ML VIAL ONE; -OXYCODONE/ACETAMINOPHEN 5-325 TAB ONE; -OXYCODONE/ACETAMINOPHEN 5-325 TAB PO PRN; -PROPOFOL IV EMULSION 10 MG/ML 20 ML VIAL IV ONE; -ROCURONIUM BROMIDE 10 MG/ML 5 ML VIAL IV ONE
--- NOTE | 2017-08-02 12:34 | DIAGNOSTIC IMAGING REPORT ---
[facility] CLINICAL HISTORY: R10.9 Abdominal [id number] pain COMPARISON STUDY: 10/22/2016 FINDINGS: Unchanged nonobstructing calcification lower pole left kidney. Bowel pattern is nonobstructive. Several surgical clips overlying the right inguinal region. IMPRESSION: Nonobstructive bowel pattern. Nonobstructing left renal calcification The above report was generated using voice recognition software. It may contain grammatical, syntax or spelling errors. Electronically signed by: Alexis Soto M.D. 08/02/2017 12:32 PM Dictated Date/Time: 08/02/2017 12:31 PM
[2017-08-02 13:35] LABS: HEMATOCRIT 49.3 % (42-52); HEMOGLOBIN 17.3 g/dL (14.0-18.0); MEAN CELL VOLUME 89.8 fL (80-100); MEAN CORPUSCULAR HEMOGLOBIN 31.5 pg (25-34); MEAN CORPUSCULAR HGB CONC 35.1 g/dl (32-36); MEAN PLATELET VOLUME 10.6 fL (7.4-10.4); PLATELET COUNT 176 K/uL (130-400); RED CELL DISTRIBUTION WIDTH SD 42.2 fL (36.4-46.3); WHITE BLOOD COUNT 7.56 K/uL (4.8-10.8)
[2017-08-02 14:10] LABS: ALBUMIN 3.8 gm/dl (3.4-5.0); ALT/SGPT 22 U/L (12-78); AST/SGOT 21 U/L (15-37); BLOOD UREA NITROGEN 20 mg/dl (7-18); CALCIUM 9.4 mg/dl (8.5-10.1); CARBON DIOXIDE 29 mmol/L (21-32); CREATININE 1.28 mg/dl (0.60-1.40); GLUCOSE 91 mg/dl (70-99); POTASSIUM 4.1 mmol/L (3.5-5.1); SODIUM 141 mmol/L (136-145)
[2017-08-02 14:13] LABS: ALKALINE PHOSPHATASE 129 U/L (45-117); TOTAL PROTEIN 7.2 gm/dl (6.4-8.2)
== END | disposition home or self-care (01) ==
LOC: C.LAB1850 12:03
PROVIDERS: ATTEND Internal Medicine
DX: R10.9 Unspecified abdominal pain (principal)

== ENCOUNTER → 2017-08-03 | Outpatient (CLI) | payer OTHER | END | disposition home or self-care (01) | LOC: C.LABSPEC 11:02 | PROVIDERS: ATTEND Internal Medicine | DX: R10.9 Unspecified abdominal pain (principal) ==

== ENCOUNTER → 2017-08-10 | Outpatient (CLI) | payer OTHER ==
[2017-08-10 10:21] LABS: HEMATOCRIT 47.2 % (42-52); HEMOGLOBIN 16.9 g/dL (14.0-18.0); MEAN CELL VOLUME 87.9 fL (80-100); MEAN CORPUSCULAR HEMOGLOBIN 31.5 pg (25-34); MEAN CORPUSCULAR HGB CONC 35.8 g/dl (32-36); PLATELET COUNT 176 K/uL (130-400); RED CELL DISTRIBUTION WIDTH CV 12.8 % (11.5-14.5); RED CELL DISTRIBUTION WIDTH SD 40.4 fL (36.4-46.3); WHITE BLOOD COUNT 5.17 K/uL (4.8-10.8)
[2017-08-10 10:39] LABS: ALBUMIN 3.5 gm/dl (3.4-5.0); TOTAL PROTEIN 6.6 gm/dl (6.4-8.2)
== END | disposition home or self-care (01) ==
LOC: C.LAB1850 08:47
PROVIDERS: ATTEND Internal Medicine
DX: D86.9 Sarcoidosis, unspecified (principal)

== ENCOUNTER → 2017-08-12 | Outpatient (CLI) | payer OTHER ==
[~2017-08-12] MED LIST changes: +GADOXETATE DISODIUM IV PRN
--- NOTE | 2017-08-12 12:43 | DIAGNOSTIC IMAGING REPORT ---
MRI OF THE LIVER WITH AND WITHOUT CONTRAST CLINICAL HISTORY: Abdominal pain. Jaundice. COMPARISON STUDY: CT of the abdomen and pelvis May 31, 2014 and [facility]UB August 02, 2017. TECHNIQUE: Utilizing a 1.5 Shital magnet and dedicated coil, multiplanar, multiecho imaging of the abdomen was performed pre and postcontrast administration. Post contrast imaging was performed utilizing dynamic enhancement. 20 minute delayed phase imaging was performed. Injection of 10 cc of Eovist IV was uneventful. FINDINGS: Liver morphology is normal. No hypervascular hepatic lesions are noted. Several hepatic cysts measure up to 1.8 cm. There is no biliary or pancreatic ductal dilatation. This exam is mildly compromised by motion artifact but no pancreatic lesion is present. Note is made of a 2.4 cm enhancing T2 hyperintense splenic lesion which favors a hemangioma. There is mild right collecting system dilatation which is improved when compared to IVP of May 10, 2015. There is no left collecting system dilatation. No abdominal ascites or lymphadenopathy is present. No gallstones are identified. Postoperative findings of the anterior abdominal wall are noted. IMPRESSION: 1. Normal liver morphology. No suspicious hepatic lesions. Several small hepatic cysts. 2. No biliary or pancreatic ductal dilatation. 3. 2.4 cm enhancing splenic lesion. While nonspecific, this likely reflects a hemangioma. Electronically signed by: Chuck Yousif M.D. 08/12/2017 12:41 PM Dictated Date/Time: 08/12/2017 12:25 PM
== END | disposition home or self-care (01) ==
LOC: C.MRIBC 10:55
PROVIDERS: ATTEND Internal Medicine
DX: R17 Unspecified jaundice (principal); R10.9 Unspecified abdominal pain; R74.8 Abnormal levels of other serum enzymes; K76.89 Other specified diseases of liver; D73.89 Other diseases of spleen

== ENCOUNTER → 2017-10-22 | Outpatient (CLI) | payer OTHER, MEDICARE ==
[~2017-10-22] MED LIST changes: -GADOXETATE DISODIUM IV PRN; -OXYC-57 PO
--- NOTE | 2017-10-22 08:37 | DIAGNOSTIC IMAGING REPORT ---
[facility] CLINICAL HISTORY: Nephrolithiasis. COMPARISON STUDY: [facility] August 02, 2017. FINDINGS: Several left renal calculi are similar to previous exam. These measure up to 4 mm. Right renal shadow is partially obscured by stool. No ureteral calculi are identified. There is no evidence for a bowel obstruction. A moderate amount stool is noted within the colon. Surgical clips project over the right hip/inguinal region. IMPRESSION: 1. No change in left-sided nephrolithiasis. 2. No ureteral calculi identified. Electronically signed by: Chuck Yousif M.D. 10/22/2017 8:36 AM Dictated Date/Time: 10/22/2017 8:34 AM
[2017-10-22 10:59] LABS: HEMOGLOBIN A1C 5.6 % (4.5-5.6)
[2017-10-22 11:02] LABS: ALBUMIN 3.7 gm/dl (3.4-5.0); ALKALINE PHOSPHATASE 125 U/L (45-117); ALT/SGPT 27 U/L (12-78); AST/SGOT 24 U/L (15-37); BLOOD UREA NITROGEN 27 mg/dl (7-18); CHOLESTEROL 155 mg/dl (0-200); CREATININE 1.37 mg/dl (0.60-1.40); LDL CHOLESTEROL CALCULATED 92 mg/dl; TOTAL PROTEIN 7.1 gm/dl (6.4-8.2)
== END | disposition home or self-care (01) ==
LOC: C.RADBC 07:37
PROVIDERS: ATTEND Urology
DX: C61 Malignant neoplasm of prostate (principal); N20.0 Calculus of kidney; R73.03 Prediabetes; E78.5 Hyperlipidemia, unspecified; E89.0 Postprocedural hypothyroidism; R17 Unspecified jaundice